=== PATIENT | male | born 1950 | race African-American/Black ===

== ENCOUNTER 2017-01-10 17:59 | Inpatient (IN) | payer SELFPAY ==
[~2017-01-10] VITALS: Ht 182.9 cm; Wt 93.4 kg
--- NOTE | 2017-01-10 17:59 | NUR ---
Jeovanny keita in [facility] - 01/10/17 at [address] RUFFIN AT [facility]
--- NOTE | 2017-01-10 17:59 | NUR ---
bibra [address] c/o head laceration s/p fall, +ETOH. nad noted. pt aao x4, vss. rr even and unlabored. pending md moreau.
[2017-01-10] MEDS ORDERED: TDAP [DIPH/PERTUSSIS/TET] 0.5 ML VIAL IM STA (18:09)
[2017-01-10] MEDS ORDERED: LIDOCAINE 2%-EPI 1:100,000 30 ML VIAL TP STA (18:21)
[2017-01-10] MEDS ORDERED: TDAP [DIPH/PERTUSSIS/TET] 0.5 ML VIAL IM ONE (18:22)
--- NOTE | 2017-01-10 18:22 | NUR ---
PT TO CT SCAN
--- NOTE | 2017-01-10 18:35 | NUR ---
DR RUFFIN AT BEDSIDE FOR SUTURE PLACEMENT
[2017-01-10] MEDS ORDERED: Thiamine 100 MG in IV D5W 50 ML IV STA (19:15)
[2017-01-10] MEDS ORDERED: LIDOCAINE 1%-EPI 1:100,000 20 ML VIAL ONE (19:25)
[2017-01-10 19:32] LABS: BASOPHILS # (AUTO) 0.1 /CMM (0.0-0.2); BASOPHILS % (AUTO) 1.1 % (0.0-2.0); EOSINOPHILS % (AUTO) 0.7 % (0.0-6.0); HEMATOCRIT 43 % (39-51); HEMOGLOBIN 14.5 g/dL (13.5-17.5); LYMPHOCYTES # (AUTO) 2.2 /CMM (0.8-4.8); MEAN CORPUSCULAR HEMOGLOBIN 32 PG (26.0-33.0); MEAN CORPUSCULAR HGB CONC 34 g/dl (31.0-36.0); MEAN CORPUSCULAR VOLUME 95 fL (80-96); MONOCYTES # (AUTO) 0.5 /CMM (0.1-1.30); MONOCYTES % (AUTO) 7.2 % (2.0-12.0); NEUTROPHILS # (AUTO) 3.8 /CMM (1.8-8.9); PLATELET COUNT (AUTO) 228 /CMM (150-450); RDW COEFFICIENT OF VARIATION 13.6 (11.5-15.0); RED BLOOD CELL COUNT(AUTO) 4.51 MIL/uL (4.5-6.0); WHITE BLOOD COUNT (AUTO) 6.6 K/uL (4.3-11.0)
--- NOTE | 2017-01-10 19:38 | NUR ---
CALLED PHARMACY FOR IVPB MEDICATION.
[2017-01-10 19:42] LABS: CALCIUM, SERUM 8.6 mg/dL (8.5-10.1); CARBON DIOXIDE 27 mmol/L (21-32); CHLORIDE 105 mmol/L (98-107); GLUCOSE 112 mg/dL (74-106); POTASSIUM 2.9 mmol/L (3.5-5.1); SODIUM SERUM 142 mmol/L (136-145); UREA NITROGEN, BLOOD 5 mg/dL (7-18)
[2017-01-10 19:49] LABS: ACETAMINOPHEN < 10 ug/ml (10-30); ALANINE AMINOTRANSFERASE 26 U/L (12-78); ALBUMIN 3.8 g/dL (3.4-5.0); ALCOHOL, BLOOD 281 mg/dL (0-0); ALKALINE PHOSPHATASE 78 U/L (46-116); ASPARTATE AMINOTRANSFERASE 23 U/L (15-37); BILIRUBIN,DIRECT 0.1 mg/dL (0.0-0.2); BILIRUBIN,TOTAL 0.6 mg/dL (0.2-1.0); SALICYLATE 0.2 mg/dL (2.8-20.0); TOTAL PROTEIN, SERUM 7.1 g/dL (6.4-8.2)
--- NOTE | 2017-01-10 19:50 | NUR ---
PAC NUSHA AT THE BEDSIDE FRO LAC REPAIR.
[2017-01-10] MEDS ORDERED: IV NS 0.9% 1,000 ML BAG IV ONE (20:00)
[2017-01-10] MEDS ORDERED: POTASSIUM CHLORIDE 20 MEQ TAB.PRT.SR PO STA (20:13)
[2017-01-10] MEDS ORDERED: Magnesium 1 GM/2 ML VIAL IV STA (20:15)
[2017-01-10] MEDS ORDERED: POTASSIUM CL. PREMIX PERIPHER. 50 ML IV STA (20:15)
[2017-01-10] MEDS ORDERED: Magnesium 1GM/D5W 100ML PREMIX 200 ML IV ONE (20:46)
[2017-01-10] MEDS ORDERED: POTASSIUM CL. PREMIX PERIPHER. 50 ML ONE (20:46)
[2017-01-10] MEDS ORDERED: POTASSIUM CHLORIDE 20 MEQ TAB.PRT.SR PO ONE (20:46)
--- NOTE | 2017-01-10 21:37 | NUR ---
PAGED DR MOREL FOR ADMISSION
--- NOTE | 2017-01-10 22:25 | NUR ---
Jeovanny keita in ED - 01/10/17 at 2235 by ÁNGEL PT NOTED WITH SEIZURE LASTING [address] RON MADE AWARE. PT PLACED ON NON REBREATHER MASK PER
--- NOTE | 2017-01-10 22:26 | NUR ---
PATIENT GOING TO TELE 120-2
--- NOTE | 2017-01-10 22:46 | NUR ---
PT BEEING ADMITTED TO 120(2), LAST MAGNESIUM STILL RUNNIG, V/S STABLE, NO PAIN, REPORT GIVEN TO MARTINEZ.
--- NOTE | 2017-01-10 23:10 | NUR ---
RN ADMITTING TELE NOTES RECEIVED 66 MALE PT, ON RM AIR, WELL TOLERATED, DENIES ANY SOB, C/O OF H/A 11/26, S/P PARIETAL LACERATION 9 STICHES , S/P FALL, ETOH, NORCO 5-325MG GIVEN FOR PAIN WITH EFFECT NO SIGN OF INFX, WITH SLIGHT BLEEDING ABLE TO STOP, PT AOX4, VERBALLY RESPONSIVE WITH CONFUSION, CT SCAN OF THE HEAD WITHOUT CONTRAST NEGATIVE, SKIN INTACT,PT AMBULATORY, ALL NEEDS MET, WELL SAFETY MEASURES IN PLACE
[2017-01-11] VITALS (7 sets, daily range): BP systolic 125–141; BP diastolic 78–93
[2017-01-11] MEDS ORDERED: HYDROCODONE/APAP 5/325MG 1 EACH TABLET ONE ×2 (00:16→02:48)
[2017-01-11] MEDS ORDERED: Z GUARD REMEDY 2 OZ OINT TP PRN (00:30)
[2017-01-11] MEDS ORDERED: ONDANSETRON HCL/PF 4 MG/2 ML VIAL IVP PRN (00:30)
[2017-01-11] MEDS ORDERED: ZOLPIDEM TARTRATE 5 MG TABLET PO PRN (00:30)
[2017-01-11] MEDS ORDERED: MAG HYDROX/AL HYDROX/SIMETH 30 ML UDC PO PRN (00:30)
[2017-01-11] MEDS ORDERED: ACETAMINOPHEN 325 MG TABLET PO PRN (00:30)
[2017-01-11] MEDS ORDERED: HYDROCODONE/APAP 5/325MG 1 EACH TABLET PO ONE (00:30)
[2017-01-11] MEDS ORDERED: MAGNESIUM HYDROXIDE 30 ML UDC PO PRN (00:30)
[2017-01-11] MEDS ORDERED: HYDROCODONE/APAP 5/325MG 1 EACH TABLET PO PRN (00:30)
[2017-01-11] MEDS: IV NS 0.9% 1,000 ML IV PRN ×2 (01:23→08:27)
[2017-01-11] MEDS: HYDROCODONE/APAP 5/325MG 1 EACH TABLET PO PRN ×4 (02:59→22:40)
--- NOTE | 2017-01-11 06:38 | NUR ---
RN CLOSING TELE NOTES ENDORSED 66 YR OLD MALE , ON RM AIR, WELL TOLERATED, DENIES ANY SOB, OR PAIN S/P PARIETAL LACERATION 9 STICHES , S/P FALL, ETOH, NORCO 5-325MG GIVEN FOR PAIN WITH EFFECT NO SIGN OF INFX, WITH SLIGHT BLEEDING ABLE TO STOP, PT AOX4, VERBALLY RESPONSIVE WITH CONFUSION, CT SCAN OF THE HEAD WITHOUT CONTRAST NEGATIVE, SKIN INTACT,PT AMBULATORY, ALL NEEDS MET, WELL SAFETY MEASURES IN PLACE.
--- NOTE | 2017-01-11 08:00 | NUR ---
RN NOTES RECEIVED PT, RESTING IN BED. AOX3 ON RA, WELL TOLERATED WELL NO SOB OR DISTRESS NOTED. S/P FALL WITH R FRONTAL HEAD LACERATION, COVERED WITH DRESSING. WITH C/O PAIN WILL GIVE PAIN MEDS ORDERED. SR ON TELE MONITOR. SAFETY MAINTAINED. IVF INFUSING ORDERED. CALL LIGHT WITHIN REACH, WILL CONT TO MONITOR
[2017-01-11] MEDS: PANTOPRAZOLE 40 MG TABLET.DR PO SCH (08:26)
[2017-01-11] MEDS ORDERED: GABA-532 PO (08:29)
[2017-01-11] MEDS ORDERED: TRAZ-144 PO (08:29)
[2017-01-11] MEDS ORDERED: VENL150T PO (08:29)
[2017-01-11] MEDS: LORAZEPAM INJ 2 MG/ML VIAL IV PRN ×3 (10:13→22:40)
[2017-01-11 12:45] LABS: BASOPHILS % (AUTO) 0.3 % (0.0-2.0); EOSINOPHILS % (AUTO) 0.2 % (0.0-6.0); HEMATOCRIT 43 % (39-51); HEMOGLOBIN 14.4 g/dL (13.5-17.5); LYMPHOCYTES # (AUTO) 1.3 /CMM (0.8-4.8); LYMPHOCYTES % (AUTO) 14.5 % (20.0-44.0); MEAN CORPUSCULAR HEMOGLOBIN 32 PG (26.0-33.0); MEAN CORPUSCULAR HGB CONC 34 g/dl (31.0-36.0); MEAN CORPUSCULAR VOLUME 96 fL (80-96); MONOCYTES # (AUTO) 0.4 /CMM (0.1-1.30); MONOCYTES % (AUTO) 4.5 % (2.0-12.0); NEUTROPHILS # (AUTO) 7.2 /CMM (1.8-8.9); NEUTROPHILS % (AUTO) 80.5 % (43.0-81.0); PLATELET COUNT (AUTO) 188 /CMM (150-450); RDW COEFFICIENT OF VARIATION 14.6 (11.5-15.0); RED BLOOD CELL COUNT(AUTO) 4.44 MIL/uL (4.5-6.0); WHITE BLOOD COUNT (AUTO) 8.9 K/uL (4.3-11.0)
[2017-01-11 13:02] LABS: CALCIUM, SERUM 8.2 mg/dL (8.5-10.1); CREATININE 0.8 mg/dL (0.6-1.3); MAGNESIUM 1.8 mg/dL (1.8-2.4); POTASSIUM 3.8 mmol/L (3.5-5.1)
--- NOTE | 2017-01-11 13:15 | NUR ---
RN NOTES BRANDT QUALITY DIRECTOR AT BEDSIDE, UPDATES GIVEN. PT WAS SEEN AND EVALUATED. R FRONTAL HEAD LACERATION SEEN BY BRANDT, PER BRANDT NEEDS WOUND CONSULT. PHOTO TAKEN AND FILED ON CHART
--- NOTE | 2017-01-11 13:47 | NUR ---
DEENA was informed by SHERLY Nino that pt. is homeless. DEENA met with pt. bedside. Pt. is a 66 year old male who was admitted to [facility] altered mental status due to alcohol intoxication. Pt. was cooperative with SW during the assessment. Pt. informed DEENA that he and his 17 year old son moved from [facility] recently. Pt. states he will be having sole custody of his son and is looking into housing. Pt. states he is familiar with [facility] and stated he will follow up with them once discharged from the hospital. SW offered halfway placement, however pt. refused stating he will go back to [place]. DEENA gave pt. the following resources: List of Homeless Resource directory which includes hot meals, shower locations, shelters, transitional housing etc; List of Food childress in [facility] and Homeless Family Resource centers located in [facility] which include [facility] on [facility] in [place]. Pt. accepted the resources. DEENA offered bus tokens for pt. upon discharge, however pt. declined. Pt. is an alcoholic and drinks more than 6 packs per day. Pt. states, he use to drink a lot more but has reduced his alcohol intake. Pt. is his own decision maker. Pt. denies using drugs. Pt. denies suicidal/homicidal ideations and visual/auditory hallucinations at this time. No other service needs are requested at this time. DEENA is available if needed.
[2017-01-11] MEDS: NEOMY SULF/BACITRAC ZN/POLY 15 GM TUBE TP SCH (16:50)
[2017-01-11] MEDS ORDERED: BACI/NEOM/POLY B OINT PKT 1 UDPKT PACKET TP SCH (17:00)
--- NOTE | 2017-01-11 20:24 | NUR ---
RN INITIAL MS NOTES RECEIVED 66 YR OLD MALE , ON RM AIR, WELL TOLERATED, DENIES ANY SOB, OR PAIN S/P PARIETAL LACERATION 9 STICHES , S/P FALL, ETOH, NO SIGN OF INFX, WITH SLIGHT BLEEDING ABLE TO STOP, PT AOX4, VERBALLY RESPONSIVE WITH NO CONFUSION AT THIS TIME, SKIN INTACT,PT AMBULATORY, ALL NEEDS MET, WELL SAFETY MEASURES IN PLACE.
[2017-01-12] VITALS: BP 125/79
[2017-01-12 04:00] VITALS: BP 125/79
[2017-01-12] MEDS: HYDROCODONE/APAP 5/325MG 1 EACH TABLET PO PRN (05:45)
--- NOTE | 2017-01-12 06:10 | NUR ---
RN CLOSING MS NOTES RECEIVED 66 YR OLD MALE , ON RM AIR, WELL TOLERATED, DENIES ANY SOB, C/O PAIN, PAIN MANAGEMENT PRN ORDERED, S/P PARIETAL LACERATION 9 STITCHES , S/P FALL, ETOH, NO SIGN OF INFX, WITH SLIGHT BLEEDING ABLE TO STOP, PT AOX4, VERBALLY RESPONSIVE WITH NO CONFUSION AT THIS TIME, SKIN INTACT,PT AMBULATORY, ALL NEEDS MET, WELL SAFETY MEASURES IN PLACE.
--- NOTE | 2017-01-12 07:20 | NUR ---
MS RN NOTE: RECEIVED PT AWAKE IN BED, A&OX3, DENIES PAIN. ON RA, RESPIRATIONS EVEN AND UNLABORED WITH NO SOB NOTED. DRESSING INTACT ON HEAD. R WRIST 18G INTACT AND PATENT. BED LOW, LOCKED WITH CALL LIGHT WITHIN REACH. ALL NEEDS MET AND ANTICIPATED. WILL CONT TO MONITOR.
[2017-01-12 08:00] VITALS: BP 149/82
[2017-01-12 08:51] VITALS: BP 115/68
--- NOTE | 2017-01-12 08:52 | NUR ---
MS RN NOTE: 0800 BP: 149/82 (PT TALKING), RECHECKED AT 0845 115/68. WILL CONT TO MONITOR.
[2017-01-12] MEDS: PANTOPRAZOLE 40 MG TABLET.DR PO SCH (08:56)
[2017-01-12] MEDS: NEOMY SULF/BACITRAC ZN/POLY 15 GM TUBE TP SCH (09:00)
[2017-01-12] MEDS ORDERED: THIAMINE HCL 100 MG TABLET PO SCH (09:00)
[2017-01-12 09:23] LABS: EOSINOPHILS # (AUTO) 0.1 /CMM (0.0-0.7); EOSINOPHILS % (AUTO) 0.8 % (0.0-6.0); HEMATOCRIT 44 % (39-51); HEMOGLOBIN 14.8 g/dL (13.5-17.5); LYMPHOCYTES # (AUTO) 1.5 /CMM (0.8-4.8); LYMPHOCYTES % (AUTO) 18.4 % (20.0-44.0); MEAN CORPUSCULAR HEMOGLOBIN 33 PG (26.0-33.0); MEAN CORPUSCULAR HGB CONC 34 g/dl (31.0-36.0); MEAN CORPUSCULAR VOLUME 97 fL (80-96); MONOCYTES # (AUTO) 0.5 /CMM (0.1-1.30); MONOCYTES % (AUTO) 6.1 % (2.0-12.0); NEUTROPHILS # (AUTO) 6.2 /CMM (1.8-8.9); NEUTROPHILS % (AUTO) 74.7 % (43.0-81.0); PLATELET COUNT (AUTO) 180 /CMM (150-450); RDW COEFFICIENT OF VARIATION 14.4 (11.5-15.0); RED BLOOD CELL COUNT(AUTO) 4.53 MIL/uL (4.5-6.0); WHITE BLOOD COUNT (AUTO) 8.3 K/uL (4.3-11.0)
[2017-01-12 09:57] LABS: CALCIUM, SERUM 8.6 mg/dL (8.5-10.1); MAGNESIUM 1.9 mg/dL (1.8-2.4); PHOSPHORUS 3.3 mg/dL (2.5-4.9); POTASSIUM 3.4 mmol/L (3.5-5.1)
--- NOTE | 2017-01-12 10:30 | NUR ---
MS RN NOTE: HUONG BALTAZAR AT BEDSIDE. OK TO D/C.
--- NOTE | 2017-01-12 13:30 | NUR ---
MS RN NOTE: PATIENT D/C TO SISTER'S HOUSE TODAY IN STABLE CONDITION. VS: 115/58 BP, 98.3 TEMP, 78 HR, 98% O2 SAT. DENIED PAIN. D/C FORMS AND BELONGINGS LIST SIGNED. ORDERS CARRIED OUT. PT LEFT THE UNIT AMBULATORY AT 1330.
== END 2017-01-12 16:51 | disposition home or self-care (01) | DRG 896 ==
LOC: ER 18:05 → TELE1 22:32 → MEDSG1 01-11 16:02
PROVIDERS: ADMIT Internal Medicine; ATTEND Internal Medicine
DX: F10.129 Alcohol abuse with intoxication, unspecified (principal); G92 Toxic encephalopathy; S01.91XA Laceration without foreign body of unspecified part of head, initial encounter; G89.29 Other chronic pain; W18.30XA Fall on same level, unspecified, initial encounter; W19.XXXA Unspecified fall, initial encounter; G93.0 Cerebral cysts; Z59.0 Homelessness; Z96.641 Presence of right artificial hip joint; Y92.410 Unspecified street and highway as the place of occurrence of the external cause; R73.9 Hyperglycemia, unspecified
CPT/HCPCS: 36415; 70450-TC; 80048-TC; 80061-TC; 80076-TC; 83735-TC; 84100-TC; 85025-TC; 90715; A4606; A6402; G0480; J2060; J2405; J3411; J3475; J3480; J3490; J7030; J7060; Z7610

== ENCOUNTER 2017-02-06 18:35 | Inpatient (IN) | payer OTHER, BC ==
[~2017-02-06] VITALS: Ht 182.9 cm; Wt 93.4 kg
[~2017-02-06 18:35] MED LIST: GABA-532 PO; TRAZ-144 PO; VENL150T PO
[2017-02-06 18:58] LABS: BASOPHILS # (AUTO) 0.1 /CMM (0.0-0.2); BASOPHILS % (AUTO) 1.9 % (0.0-2.0); EOSINOPHILS # (AUTO) 0.1 /CMM (0.0-0.7); EOSINOPHILS % (AUTO) 1.6 % (0.0-6.0); HEMATOCRIT 41 % (39-51); HEMOGLOBIN 13.7 g/dL (13.5-17.5); LYMPHOCYTES # (AUTO) 2.4 /CMM (0.8-4.8); LYMPHOCYTES % (AUTO) 40.6 % (20.0-44.0); MEAN CORPUSCULAR HEMOGLOBIN 32 PG (26.0-33.0); MEAN CORPUSCULAR HGB CONC 33 g/dl (31.0-36.0); MEAN CORPUSCULAR VOLUME 96 fL (80-96); MONOCYTES # (AUTO) 0.4 /CMM (0.1-1.30); MONOCYTES % (AUTO) 6.9 % (2.0-12.0); PLATELET COUNT (AUTO) 166 /CMM (150-450); RDW COEFFICIENT OF VARIATION 13.2 (11.5-15.0); RED BLOOD CELL COUNT(AUTO) 4.32 MIL/uL (4.5-6.0)
[2017-02-06 19:08] LABS: ALBUMIN 3.8 g/dL (3.4-5.0); CALCIUM, SERUM 8.4 mg/dL (8.5-10.1); CREATININE 0.9 mg/dL (0.6-1.3); POTASSIUM 3.1 mmol/L (3.5-5.1)
[2017-02-06 19:10] LABS: APPEARANCE,URINE Clear (CLEAR); BILIRUBIN,URINE Negative (NEGATIVE); BLOOD, URINE Negative Ery/uL (NEGATIVE); COLOR,URINE Yellow (YELLOW); KETONES,URINE Negative (NEGATIVE); LEUKOCYTE ESTERASE ,URINE Negative (NEGATIVE); NITRITE, URINE Negative (NEGATIVE); PROTEIN,URINE Negative (NEGATIVE); UGLUCOSE Negative (NEGATIVE); UROBILINOGEN,URINE 0.2 EU/dL (0.2)
[2017-02-06 19:21] LABS: BILIRUBIN,DIRECT 0.1 mg/dL (0.0-0.2); BILIRUBIN,TOTAL 0.5 mg/dL (0.2-1.0); TOTAL PROTEIN, SERUM 7.3 g/dL (6.4-8.2)
[2017-02-06 19:23] LABS: SALICYLATE 0.6 mg/dL (2.8-20.0)
[2017-02-07] MEDS ORDERED: HYDR-3026 PO (14:17)
[2017-02-07 18:14] VITALS: BP 147/84
[2017-02-07 20:00] VITALS: BP 128/74
[2017-02-08 06:58] LABS: ALBUMIN 3.3 g/dL (3.4-5.0); BILIRUBIN,TOTAL 0.7 mg/dL (0.2-1.0); CALCIUM, SERUM 8.5 mg/dL (8.5-10.1); CREATININE 1.1 mg/dL (0.6-1.3); POTASSIUM 4.2 mmol/L (3.5-5.1); TOTAL PROTEIN, SERUM 6.5 g/dL (6.4-8.2)
[2017-02-08 08:13] VITALS: BP 137/90
[2017-02-08 16:00] VITALS: BP 135/86
[2017-02-08 20:00] VITALS: BP 133/90
[2017-02-09 08:00] VITALS: BP 152/90
== END 2017-02-09 11:45 | disposition home or self-care (01) | DRG 885 ==
LOC: ER 18:36 → GPS 02-07 16:48
PROVIDERS: ADMIT Psychiatry & Neurology Psychosomatic Medicine; ATTEND Psychiatry & Neurology Psychosomatic Medicine
DX: F33.9 Major depressive disorder, recurrent, unspecified (principal); F10.229 Alcohol dependence with intoxication, unspecified; F29 Unspecified psychosis not due to a substance or known physiological condition; F33.1 Major depressive disorder, recurrent, moderate; F43.10 Post-traumatic stress disorder, unspecified; Z59.0 Homelessness; Z96.649 Presence of unspecified artificial hip joint; Z79.899 Other long term (current) drug therapy; T50.901D Poisoning by unspecified drugs, medicaments and biological substances, accidental (unintentional), subsequent encounter; Z73.6 Limitation of activities due to disability; Y90.6 Blood alcohol level of 120-199 mg/100 ml
CPT/HCPCS: 36415; 80048-TC; 80053-TC; 80061-TC; 80076-TC; 80305; 81000-TC; 85025-TC; 87081-TC; A4606; G0480; Q0162; Q0177; Z7610

== ENCOUNTER 2018-11-21 13:57 | Emergency (ER) | payer BC, OTHER ==
[~2018-11-21] VITALS: Ht 182.9 cm; Wt 74.8 kg
[~2018-11-21 13:57] MED LIST changes: +HYDR-3026 PO; -TRAZ-144 PO; +TRAZ-182 PO
[2018-11-21] MEDS ORDERED: IV NS 0.9% 1,000 ML BAG IV ONE (14:00)
[2018-11-21] MEDS ORDERED: diphenhydrAMINE HCL 50 MG/ML VIAL ONE (14:04)
[2018-11-21] MEDS ORDERED: HALOPERIDOL LACTATE INJ 5 MG/ML VIAL ONE (14:05)
--- NOTE | 2018-11-21 14:13 | NUR ---
PT BIBRA FOR ALOC AND LACERATION ON HEAD; PT NOT ANSWERING QUESTIONS APPROPRIETLY, PT ON MONITOR, VSS, NAD NOTED, PENDING MD ONTIVEROS
[2018-11-21 14:19] LABS: BASOPHILS # (AUTO) 0.1 /CMM (0.0-0.2); BASOPHILS % (AUTO) 1.1 % (0.0-2.0); EOSINOPHILS % (AUTO) 0.3 % (0.0-6.0); HEMATOCRIT 50 % (39-51); HEMOGLOBIN 16.9 g/dL (13.5-17.5); LYMPHOCYTES # (AUTO) 5.2 /CMM (0.8-4.8); LYMPHOCYTES % (AUTO) 52.2 % (20.0-44.0); MEAN CORPUSCULAR HGB CONC 34 g/dl (31.0-36.0); MEAN CORPUSCULAR VOLUME 98 fL (80-96); MONOCYTES # (AUTO) 0.7 /CMM (0.1-1.30); MONOCYTES % (AUTO) 7.3 % (2.0-12.0); NEUTROPHILS # (AUTO) 3.9 /CMM (1.8-8.9); NEUTROPHILS % (AUTO) 39.1 % (43.0-81.0); PLATELET COUNT (AUTO) 178 /CMM (150-450); WHITE BLOOD COUNT (AUTO) 9.9 K/uL (4.3-11.0)
[2018-11-21 14:27] LABS: CALCIUM, SERUM 9.1 mg/dL (8.5-10.1); POTASSIUM 3.1 mmol/L (3.5-5.1)
[2018-11-21] MEDS ORDERED: diphenhydrAMINE HCL 50 MG/ML VIAL IM ONE (14:30)
[2018-11-21] MEDS ORDERED: HALOPERIDOL LACTATE INJ 5 MG/ML VIAL IM ONE (14:30)
[2018-11-21 15:50] LABS: LYMPHOCYTES % (MANUAL) 53 % (16-48); MONOCYTES % (MANUAL) 7 % (0-11.0); NEUTROPHILS % (MANUAL) 40 (42-76)
--- NOTE | 2018-11-22 02:06 | NUR ---
Patient is resting comfortably in bed with eyes closed. Easily aroused. VSS
[2018-11-22] MEDS ORDERED: ACETAMINOPHEN ES 500 MG TABLET ONE (02:10)
[2018-11-22] MEDS ORDERED: ACETAMINOPHEN ES 500 MG TABLET PO ONE (02:30)
--- NOTE | 2018-11-22 05:34 | NUR ---
Patient given written and verbal discharge instructions. Patient verbalizes understanding of instructions. Patient is ambulatory with steady gait. Refuses offer of detention placement. Patient given list of available shelters in surrounding area.
[2018-11-22 05:35] VITALS: BP 150/72
--- NOTE | 2018-11-22 05:35 | NUR ---
IV removed. Catheter intact and site benign. Pressure and 4x4 applied to site. No bleeding noted.
== END 2018-11-22 05:37 | disposition home or self-care (01) ==
LOC: ER 14:02
DX: S01.01XA Laceration without foreign body of scalp, initial encounter (principal); F10.129 Alcohol abuse with intoxication, unspecified; F32.9 Major depressive disorder, single episode, unspecified; F41.9 Anxiety disorder, unspecified; G89.29 Other chronic pain; Z79.899 Other long term (current) drug therapy; W19.XXXA Unspecified fall, initial encounter; Y93.89 Activity, other specified; Y92.89 Other specified places as the place of occurrence of the external cause; Y99.8 Other external cause status; Y90.8 Blood alcohol level of 240 mg/100 ml or more
CPT/HCPCS: 12002; 36415; 70450; 80048; 80307; 85025; 96372 ×2; 99284; J1200; J1630; J7030; G0480

== ENCOUNTER 2018-12-15 13:19 | Emergency (ER) | payer OTHER ==
[~2018-12-15] VITALS: Ht 182.9 cm; Wt 92.1 kg
[2018-12-15 13:48] VITALS: BP 127/70
--- NOTE | 2018-12-15 14:11 | NUR ---
7 THOR REMOVED. SKIN INTACT WITH NO BLEEDING NOTED.
--- NOTE | 2018-12-15 14:15 | NUR ---
2 SUTURES REMOVED BY KASI
== END 2018-12-15 14:21 | disposition home or self-care (01) ==
LOC: ER 13:22
DX: S01.01XD Laceration without foreign body of scalp, subsequent encounter (principal); G89.29 Other chronic pain; Z98.890 Other specified postprocedural states; Z79.899 Other long term (current) drug therapy; X58.XXXD Exposure to other specified factors, subsequent encounter

== ENCOUNTER 2019-01-08 15:21 | Emergency (ER) | payer OTHER ==
[~2019-01-08] VITALS: Ht 180.3 cm; Wt 93.0 kg
[~2019-01-08 15:21] MED LIST changes: -HYDR-3026 PO; +HYDR-500 PO
--- NOTE | 2019-01-08 15:21 | NUR ---
PT BIB RA 97,NEAR SYNCOPAL EPISODE AT AN INTERSECTION, "FELT WEAK AND DIZZY" PT IS AAOX3, NOT IN RESPIRATORY DISTRESS, HOOKED TO MONITOR, KEPT RESTED AND COMFORTABLE, WILL CONTINUE TO MONITOR, AWAITING ER MD FOR EVAL.
--- NOTE | 2019-01-08 16:09 | NUR ---
SISTER CALLED, STATED THAT SHE IS CONCERNED THAT THERE MAYBE SOME THNG MORE THEN JUST ALCOHOL THAT IS CAUSING PT TO HAVE SYNCOPE EPISODE, BECAUSE PT HAS FELL AND HIT HIS HEAD MULTIPLE TIMES (AT LEAST 3-4) WITH IN THE LAST WEEK. CONTACT: SISTER, JOHN MORALES
--- NOTE | 2019-01-08 16:15 | NUR ---
Social service consult requested by Dr. Hernandez for homelessness and ETOH. DEENA met with pt. bedside. Pt. is alert and oriented x 4. Pt. appears dirty and disheveled.Pt. is cooperative with SW. Pt. was teary eyed when speaking with SW. DEENA is familiar with the pt. from an inpatient admission in 01/2017. Pt. states he has been living on the streets in [place] with this 19 year old son. Pt. Pt. states he is feeling depressed because he is unable to find an apartment to live in. Pt. denies suicidal and homicidal ideations at this time. Pt. stated he is linked with [facility] for housing and is currently looking for an apartment that [employer] will pay for the next 6 months. However, pt. stated he is having a difficult time finding an apartment. His sister is assisting him as well in finding an apartment. Pt. receives $1100 per month in SSI and VA benefits. Pt. is an alcoholic and states, " I drink as many beers as I can." DEENA offered pt. referrals to treatment programs but pt. declined stating, " I was at [facility] for 5 days and that didn't help me." " I need a miracle." DEENA encouraged pt. to go to treatment. DEENA also offered pt. assisted placement and pt. declined stating, " I am not going to leave my son alone." Pt. states his son is working part-time and is making $1500 a month but refuses to help in getting an apartment together. Pt. states his son is saving money for a car. Pt. refused all referrals that were offered to him. DEENA updated pt's RN Foster and updated him with aforementioned information.
--- NOTE | 2019-01-08 17:02 | NUR ---
AT BEDSIDE FOR EVAL.
[2019-01-08] MEDS ORDERED: ONDANSETRON HCL/PF 4 MG/2 ML VIAL ONE (17:13)
[2019-01-08] MEDS ORDERED: LIDOCAINE VISCOUS 2% UD 15 ML UDC ONE (17:13)
[2019-01-08] MEDS ORDERED: ACETAMINOPHEN ES 500 MG TABLET ONE (17:13)
[2019-01-08] MEDS ORDERED: MAG HYDROX/AL HYDROX/SIMETH 30 ML UDC ONE (17:13)
--- NOTE | 2019-01-08 17:20 | NUR ---
IV LINE ESTABLISHED, BLOOD DRAWNED AND SENT TO LAB.
[2019-01-08 17:25] LABS: BASOPHILS # (AUTO) 0.1 /CMM (0.0-0.2); BASOPHILS % (AUTO) 1.5 % (0.0-2.0); EOSINOPHILS % (AUTO) 0.6 % (0.0-6.0); HEMATOCRIT 48 % (39-51); HEMOGLOBIN 16.5 g/dL (13.5-17.5); LYMPHOCYTES # (AUTO) 2.2 /CMM (0.8-4.8); LYMPHOCYTES % (AUTO) 40.5 % (20.0-44.0); MEAN CORPUSCULAR HGB CONC 34 g/dl (31.0-36.0); MEAN CORPUSCULAR VOLUME 101 fL (80-96); MONOCYTES # (AUTO) 0.4 /CMM (0.1-1.30); NEUTROPHILS # (AUTO) 2.7 /CMM (1.8-8.9); NEUTROPHILS % (AUTO) 49.4 % (43.0-81.0); PLATELET COUNT (AUTO) 102 /CMM (150-450); RED BLOOD CELL COUNT(AUTO) 4.75 MIL/uL (4.5-6.0); WHITE BLOOD COUNT (AUTO) 5.4 K/uL (4.3-11.0)
--- NOTE | 2019-01-08 17:25 | NUR ---
CHAR PULLER AT BEDSIDE FOR EVAL.
[2019-01-08] MEDS ORDERED: CHLORDIAZEPOXIDE HCL 25 MG CAPSULE ONE (17:26)
[2019-01-08] MEDS ORDERED: MAG HYDROX/AL HYDROX/SIMETH 30 ML UDC PO ONE (17:30)
[2019-01-08] MEDS ORDERED: ACETAMINOPHEN ES 500 MG TABLET PO ONE (17:30)
[2019-01-08] MEDS ORDERED: LIDOCAINE VISCOUS 2% UD 15 ML UDC MM ONE (17:30)
[2019-01-08] MEDS ORDERED: ONDANSETRON 4 MG TAB.RAPDIS PO ONE (17:30)
[2019-01-08] MEDS ORDERED: IV NS 0.9% 1,000 ML BAG IV ONE (17:30)
[2019-01-08] MEDS ORDERED: CHLORDIAZEPOXIDE HCL 25 MG CAPSULE PO ONE (17:30)
[2019-01-08 17:38] LABS: CALCIUM, SERUM 8.6 mg/dL (8.5-10.1); CARBON DIOXIDE 34 mmol/L (21-32); CHLORIDE 106 mmol/L (98-107); CREATININE 0.9 mg/dL (0.6-1.3); GLUCOSE 106 mg/dL (74-106); POTASSIUM 2.9 mmol/L (3.5-5.1); SODIUM SERUM 146 mmol/L (136-145); UREA NITROGEN, BLOOD 4 mg/dL (7-18)
[2019-01-08 17:43] LABS: ALANINE AMINOTRANSFERASE 68 U/L (12-78); ALBUMIN 3.3 g/dL (3.4-5.0); ALKALINE PHOSPHATASE 86 U/L (46-116); ASPARTATE AMINOTRANSFERASE 76 U/L (15-37); BILIRUBIN,DIRECT 0.4 mg/dL (0.0-0.2); BILIRUBIN,TOTAL 1.2 mg/dL (0.2-1.0); TOTAL PROTEIN, SERUM 6.9 g/dL (6.4-8.2)
[2019-01-08 17:52] LABS: ALCOHOL, BLOOD 273 mg/dL (0-0); LIPASE 319 U/L (73-393)
[2019-01-08 18:30] LABS: MONOCYTES % (MANUAL) 5 % (0-11.0); NEUTROPHILS % (MANUAL) 59 (42-76)
[2019-01-08] MEDS ORDERED: POTASSIUM CHLORIDE 20 MEQ TAB.PRT.SR PO ONE ×2 (18:30→18:52)
[2019-01-08 18:31] LABS: LYMPHOCYTES % (MANUAL) 36 % (16-48)
--- NOTE | 2019-01-08 19:27 | NUR ---
IV removed. Catheter intact and site benign. Pressure and 4x4 applied to site. No bleeding noted. Patient discharged to home in stable condition. Written and verbal after care instructions given. Patient verbalizes understanding of instruction.
[2019-01-08 19:29] VITALS: BP 138/88
== END 2019-01-08 19:32 | disposition home or self-care (01) ==
LOC: ER 15:49
DX: F10.129 Alcohol abuse with intoxication, unspecified (principal); S00.81XA Abrasion of other part of head, initial encounter; E87.6 Hypokalemia; R55 Syncope and collapse; R53.1 Weakness; G89.29 Other chronic pain; F43.10 Post-traumatic stress disorder, unspecified; Z98.890 Other specified postprocedural states; Z79.899 Other long term (current) drug therapy; W18.39XA Other fall on same level, initial encounter; Y93.89 Activity, other specified; Y92.89 Other specified places as the place of occurrence of the external cause; Y99.8 Other external cause status; Y90.8 Blood alcohol level of 240 mg/100 ml or more
CPT/HCPCS: 36415; 71045; 80048; 80076; 80307; 83690; 83735; 84484; 85025; 93005; 96360; 99284; J2405; J7030; G0480

== ENCOUNTER 2019-03-20 20:24 | Emergency (ER) | payer OTHER ==
[~2019-03-20] VITALS: Ht 180.3 cm; Wt 91.6 kg
[~2019-03-20 20:24] MED LIST changes: +GABA100C PO; +SERT50TA PO
--- NOTE | 2019-03-20 20:31 | NUR ---
PT SEMAJ FROM [facility] C/O ETOH, -INJURY, DENIES SI/HI, PT IS AAOX3, NOT IN RESPIRATORY DISTRESS, HOOKED TO MONITOR, KEPT RESTED AND COMFORTABLE, WILL CONTINUE TO MONITOR.
--- NOTE | 2019-03-20 21:03 | NUR ---
SEEN AND EXAMINED BY .
--- NOTE | 2019-03-20 21:12 | NUR ---
URINE SPECIMEN COLLECTED AND SENT TO LAB.
--- NOTE | 2019-03-20 21:30 | NUR ---
PT IS WHEELED TO CT SCAN VIA [facility].
[2019-03-20 21:33] LABS: BASOPHILS # (AUTO) 0.1 /CMM (0.0-0.2); HEMATOCRIT 42 % (39-51); HEMOGLOBIN 14.2 g/dL (13.5-17.5); LYMPHOCYTES # (AUTO) 2.6 /CMM (0.8-4.8); LYMPHOCYTES % (AUTO) 38.9 % (20.0-44.0); MEAN CORPUSCULAR HGB CONC 34 g/dl (31.0-36.0); MEAN CORPUSCULAR VOLUME 100 fL (80-96); MONOCYTES # (AUTO) 0.8 /CMM (0.1-1.30); MONOCYTES % (AUTO) 11.2 % (2.0-12.0); NEUTROPHILS # (AUTO) 3.2 /CMM (1.8-8.9); NEUTROPHILS % (AUTO) 47.9 % (43.0-81.0); PLATELET COUNT (AUTO) 170 /CMM (150-450); RED BLOOD CELL COUNT(AUTO) 4.21 MIL/uL (4.5-6.0); WHITE BLOOD COUNT (AUTO) 6.7 K/uL (4.3-11.0)
[2019-03-20 21:39] LABS: APPEARANCE,URINE Clear (CLEAR); BILIRUBIN,URINE Negative (NEGATIVE); BLOOD, URINE Negative Ery/uL (NEGATIVE); COLOR,URINE Yellow (YELLOW); KETONES,URINE Negative (NEGATIVE); LEUKOCYTE ESTERASE ,URINE Negative (NEGATIVE); NITRITE, URINE Negative (NEGATIVE); PH,URINE 5.5 (5.0-8.0); PROTEIN,URINE Negative (NEGATIVE); UGLUCOSE Negative (NEGATIVE); UROBILINOGEN,URINE 0.2 EU/dL (0.2)
[2019-03-20 21:46] LABS: CALCIUM, SERUM 8.4 mg/dL (8.5-10.1); CREATININE 0.8 mg/dL (0.6-1.3); POTASSIUM 3.1 mmol/L (3.5-5.1)
[2019-03-20 21:52] LABS: ALBUMIN 3.5 g/dL (3.4-5.0); BILIRUBIN,DIRECT 0.2 mg/dL (0.0-0.2); BILIRUBIN,TOTAL 0.6 mg/dL (0.2-1.0); TOTAL PROTEIN, SERUM 6.7 g/dL (6.4-8.2)
[2019-03-20 21:53] LABS: SALICYLATE 0.7 mg/dL (2.8-20.0)
--- NOTE | 2019-03-21 01:19 | NUR ---
PT ASLEEP ON BED, EASILY AROUSABLE, V/S STABLE, KEPT RESTED AND COMFORTABLE, WILL CONTINUE TO MONITOR.
--- NOTE | 2019-03-21 03:34 | NUR ---
PT ASLEEP ON BED, EASILY AROUSABLE, V/S STABLE, KEPT RESTED AND COMFORTABLE, WILL CONTINUE TO MONITOR.
--- NOTE | 2019-03-21 05:06 | NUR ---
PT ASLEEP ON BED, EASILY AROUSABLE, AAOX4, NOT IN RESPIRATORY DISTRESS, V/S STABLE, KEPT RESTED AND COMFORTABLE, WILL CONTINUE TO MONITOR.
--- NOTE | 2019-03-21 06:17 | NUR ---
Patient given written and verbal discharge instructions. Patient verbalizes understanding of instructions. Patient is ambulatory with steady gait. Refuses offer of longterm placement. Patient given list of available shelters in surrounding area.
[2019-03-21 06:18] VITALS: BP 122/74
== END 2019-03-21 06:30 | disposition home or self-care (01) ==
LOC: ER 20:27
DX: F10.129 Alcohol abuse with intoxication, unspecified (principal); G89.29 Other chronic pain; R51 Headache; F43.10 Post-traumatic stress disorder, unspecified; Z98.890 Other specified postprocedural states; Z79.899 Other long term (current) drug therapy; Y90.8 Blood alcohol level of 240 mg/100 ml or more
CPT/HCPCS: 36415; 70450; 72125; 80048; 80076; 80305; 80307; 80329; 81001; 85025; 99284; G0480; 81000-TC

== ENCOUNTER 2019-04-03 18:27 | Emergency (ER) | payer OTHER ==
[~2019-04-03] VITALS: Ht 182.9 cm; Wt 95.7 kg
[2019-04-03 18:38] VITALS: BP 128/80
== END 2019-04-03 21:43 | disposition home or self-care (01) ==
LOC: ER 18:39
DX: F10.10 Alcohol abuse, uncomplicated (principal); G89.29 Other chronic pain; M25.551 Pain in right hip; F43.10 Post-traumatic stress disorder, unspecified; Y90.9 Presence of alcohol in blood, level not specified; Z98.890 Other specified postprocedural states; Z79.899 Other long term (current) drug therapy